=== PATIENT | male | born 1950 | race Caucasian/White ===

== ENCOUNTER → 2016-05-31 | Outpatient (CLI) | payer MEDICARE, OTHER ==
--- NOTE | 2016-05-31 15:22 | MRI ---
EXAM DESCRIPTION: Cervical Spine CLINICAL HISTORY: RADIOCULOPATHY COMPARISON: October 31, 2011 TECHNIQUE: MRI of the cervical spine is performed according to our usual protocol. FINDINGS: The patient is status post anterior fusion of C5-6. The dens is unremarkable. AP alignment and vertebral body height are unremarkable. Marrow signal is normal. C2-C3: Right facet degeneration. Mild right neuroforaminal narrowing. The spinal canal and left neuroforamen are unremarkable. C3-4: Broad-based posterior disc osteophyte complex and uncovertebral hypertrophy. There is moderate left and mild right neuroforaminal narrowing. The AP diameter of the spinal canal is adequate at 12 mm. C4-5: Focal left paracentral disc protrusion with cord contact. The midline diameter of the spinal canal adequate at 1 cm. There is mild bilateral neuroforaminal narrowing, left greater than right. C5-6: No spinal canal or neural foraminal narrowing. C6-7: Asymmetric the right broad-based posterior disc osteophyte complex and cord contact. The midline diameter of the spinal canal is adequate at 11 mm. Bilateral neuroforamen are narrowed from uncovertebral joint hypertrophy. C7-T1: Unremarkable. IMPRESSION: 1. No evidence of restenosis of the fused level, C5-6 2. Degenerative change as described above with cord contact by disc material at C4-5 and C6-C7. No evidence of myelomalacia at this time. Electronically signed by: Cesar Jackson MD 05/31/2016 3:21 PM [facility]
== END | disposition home or self-care (01) ==
LOC: MRI 11:05
PROVIDERS: ATTEND Family Medicine
DX: M54.12 Radiculopathy, cervical region (principal)

== ENCOUNTER → 2018-05-14 | Outpatient (CLI) | payer MEDICARE, OTHER | LOC: LAB.O 15:29 | PROVIDERS: ATTEND Urology | DX: E29.1 Testicular hypofunction (principal); N40.0 Benign prostatic hyperplasia without lower urinary tract symptoms ==

== ENCOUNTER → 2018-10-21 | Outpatient (CLI) | payer MEDICARE, OTHER | LOC: GMAE 10:13 | PROVIDERS: ATTEND Family Medicine | DX: Z12.5 Encounter for screening for malignant neoplasm of prostate (principal); Z79.899 Other long term (current) drug therapy | CPT/HCPCS: 84443; G0103 ==

== ENCOUNTER → 2019-04-13 | Outpatient (CLI) | payer MEDICARE, OTHER ==
--- NOTE | 2019-04-14 13:35 | MRI ---
EXAM DESCRIPTION: Cervical Spine: MRI. CLINICAL HISTORY: 68 years Male RADICULOPATHY CERVICAL REGION COMPARISON: MRI scan cervical spine without contrast May 2016. TECHNIQUE: Multiplanar, high-field MRI, multiple sequences, non-contrast Cervical spine. FINDINGS: C3-C4: Disc desiccation with disc space preserved. Posterior midline bulge abutting the midline cord. Bilateral uncinate spurs larger on the right. Bilateral neural foraminal stenosis more on the left. This has progressed since the prior study. Grade 1 retrolisthesis 2 mm. C4-C5: Disc desiccation with disc space maintained. Posterior midline bulge abutting the cord. Minimal posterior ligament thickening. Mild canal and neural foraminal narrowing. Facets negative. No change from the prior study. ACDF C5-C6: Interbody osseous fusion. No soft tissue mass or fluid collection around the hardware. Minimal posterior ligament thickening. No stenosis canal and neural foramina. Facets are negative. Stable since the prior study. C6-C7: Disc desiccation with anterior disc bulge and endplate ridging. Grade 1 anterolisthesis 2 mm. Disc desiccation and minimal midline bulge. No significant narrowing or stenosis of the canal or neural foramina. Facets are negative. C7-T1: Disc desiccation anterior bulging and anterior endplate spurs/ridging. No posterior bulging. Facets are negative. Canal and neural foramina are patent. T1-T2: Disc desiccation with anterior bulging and endplate ridging. Disc space maintained. No posterior bulging. Facets are negative. Canal and neural foramina are patent. Normal signal in the C2-C3 disc with no bulging. Disc space preserved. Canal and neural foramina are patent. Facet joints unremarkable. Spinal alignment reduced lordosis C1-C6.. No cord compression or cord edema. Atlantoaxial joint unremarkable.. Base of the cerebellar tonsils is at the level of the foramen magnum. Paravertebral soft tissues showing small lymph nodes, no abnormalities. Vertebral bodies are not compressed at any level. Minimal magnetic susceptibility artifact, but otherwise normal marrow signal in the remaining vertebral bodies and the posterior elements. IMPRESSION: 1. ACDF C5-C6 with no significant canal or neural foraminal narrowing/stenosis. No soft tissue complications. 2. Bilateral uncinate spurs C3-C4 and posterior disc bulge with bilateral neural foraminal stenosis, more on the right. Progression since the prior study. 3. Minimal disc changes at other levels and mild spondylolisthesis. Anterior spondylosis at some levels. No canal or neural foraminal stenosis or disc herniations. Stable since the prior study. Electronically signed by: Eusebio Constantino MD 04/14/2019 1:34 PM [facility]
== END ==
LOC: MRI 13:02
PROVIDERS: ATTEND Family Medicine
DX: M54.12 Radiculopathy, cervical region (principal); M43.22 Fusion of spine, cervical region; M25.78 Osteophyte, vertebrae; M47.892 Other spondylosis, cervical region; M48.02 Spinal stenosis, cervical region; M43.12 Spondylolisthesis, cervical region; M50.91 Cervical disc disorder, unspecified, high cervical region; Z98.1 Arthrodesis status

== ENCOUNTER → 2019-12-22 | Outpatient (CLI) | payer MEDICARE, OTHER ==
--- NOTE | 2019-12-23 13:28 | MRI ---
EXAM DESCRIPTION: Lumbar Spine w/o Contrast : Magnetic Resonance Imaging. CLINICAL HISTORY: OTHER INVERTEBRAL DISC DEGENERATION COMPARISON: None. TECHNIQUE: Multiplanar, multiple standard sequences, non contrast MRI, lumbar spine. FINDINGS: L5-S1: The disc is well visualized on axial T2 series 501, image 3. Minimal disc space loss and disc desiccation. Anterior disc bulge with spurs. Anterior and right side moderate endplate reactive changes. Disc spur complex encroaching on the right foramen and the right L5 nerve. Calcification or gas in the central disc. Hypertrophic arthrosis of the facet joints and thickening of the flavum ligaments (canal elements). Hypertrophic facet bulge into the left foramen with moderate narrowing. Canal is patent. L4-L5: Normal signal in the disc and disc space maintained. Hypertrophic changes in the canal elements. Canal is patent. Mild left foraminal narrowing secondary to bulging disc. L3-L4: Disc space maintained with minimal disc desiccation with no bulging. Minimal hypertrophic changes of the canal elements. AP canal diameter 13 mm. Bilateral foramina are patent. L2-L3: Normal signal in the disc with disc space preserved. Minimal hypertrophic changes in the canal elements. Canal is patent. Bilateral foramina are unremarkable. L1-L2: Normal signal in the disc with disc space preserved. No bulging. Minimal hypertrophic changes in the canal elements. Canal and foramina are patent. Conus terminates at this level. Circumscribed hyperintense T1 and T2 hemangioma in the L1 vertebral body. T12-L1: Normal signal in the disc with disc space preserved. Canal elements unremarkable. Canal and foramina are patent. No scoliosis. Paravertebral soft tissues negative.. Distal cord normal signal and caliber. Otherwise normal marrow signal in the remaining vertebral bodies and the posterior elements. Vertebral bodies are not compressed at any level. IMPRESSION: 1. 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 2. Right L5-S1 foraminal stenosis and impingement of the right L5 nerve in the foramen secondary to disc-spur complex on the right side of the disc space. Moderate spondylosis in the disc space more to the right. 3. Please refer to FINDINGS for discussion of results at other disc space levels. Electronically signed by: Eusebio Constantino MD 12/23/2019 1:27 PM CDT
== END ==
LOC: MRI 13:00
PROVIDERS: ATTEND Anesthesiology Pain Medicine
DX: M51.36 Other intervertebral disc degeneration, lumbar region (principal); M47.896 Other spondylosis, lumbar region; M47.897 Other spondylosis, lumbosacral region; M48.07 Spinal stenosis, lumbosacral region; M25.78 Osteophyte, vertebrae; M24.28 Disorder of ligament, vertebrae

== ENCOUNTER → 2020-04-25 | Outpatient (CLI) | payer MEDICARE, OTHER | LOC: GMAE 11:46 | PROVIDERS: ATTEND Family Medicine | DX: Z12.5 Encounter for screening for malignant neoplasm of prostate (principal); Z13.6 Encounter for screening for cardiovascular disorders; Z79.899 Other long term (current) drug therapy | CPT/HCPCS: 84443; G0103 ==

== ENCOUNTER → 2020-05-31 | Outpatient (CLI) | payer MEDICARE, OTHER ==
--- NOTE | 2020-05-31 11:20 | CT ---
EXAM DESCRIPTION: Abdoment/Pelvis w/o Contrast CLINICAL HISTORY: 70 years Male, LOWER ABD PAIN COMPARISON: None. TECHNIQUE: Transaxial images were obtained without intravenous or oral contrast media. Sagittal and coronal reconstruction was performed.This exam was performed according to our departmental dose-optimization program, which includes automated exposure control, adjustment of the mA and/or kV according to patient size and/or use of iterative reconstruction technique. FINDINGS: The lung bases are clear. The liver and spleen are unremarkable. No biliary ductal dilatation is observed. A calcified gallstone is observed in the gallbladder. No adrenal masses are detected. The pancreas is normal in appearance. Imaging of the kidneys reveals no evidence of hydronephrosis mass or calcification. There is a 1.44 cm diameter lower pole simple cyst on the right. Calcific atherosclerotic changes observed in the abdominal aorta without evidence of aneurysmal dilatation. The appendix is identified and is normal in appearance. Diverticulosis of the descending and sigmoid colon is observed without evidence of diverticulitis. No inguinal region abnormality is seen. Degenerative changes are observed in the hips and lower lumbar spine. No stones are seen along the course of the distal ureters. IMPRESSION: 1. Cholelithiasis. 2. Uncomplicated diverticulosis of the colon. Electronically signed by: Aleksandr Llamas MD 05/31/2020 11:18 AM [facility]
== END ==
LOC: CT 07:57
PROVIDERS: ATTEND Family Medicine
DX: K80.20 Calculus of gallbladder without cholecystitis without obstruction (principal); K57.30 Diverticulosis of large intestine without perforation or abscess without bleeding